=== PATIENT | male | born 1985 | race Two or more races ===

== ENCOUNTER 2025-07-07 00:19 | Emergency (ER) | payer OTHER | END 2025-07-07 02:32 | disposition home or self-care (01) | LOC: MADERS 00:19 | DX: S16.1XXA Strain of muscle, fascia and tendon at neck level, initial encounter (principal); M79.18 Myalgia, other site; V47.5XXA Car driver injured in collision with fixed or stationary object in traffic accident, initial encounter | CPT/HCPCS: 70450; 71045; 72125 ==